=== PATIENT | female | born 1950 | race Caucasian/White ===

== ENCOUNTER → 2018-05-03 | Outpatient (CLI) | payer MEDICARE ==
[~2018-05-03] MED LIST: ACETAMINOPHEN500 MG PO; Aspirin EC325 MG PO; BENA10 PO; BENA20; BENA20 PO; Benazepril HCl10 MG PO; CALCIT950; CALGLU500 PO; FOLI1; GLIP10 PO; GLIP10ER; GLIP5 PO; HYDCHL25; HYDCHL25 PO; IBUP600; METF500; METF500 PO; MULVITMINE PO; NAPR220; ROSI4 PO; ROXICODONE5 MG PO; SULF500A PO
[2018-05-03 15:54] LABS: BASOPHILS ABSOLUTE AUTO 0.08 K/mm3 (0.00-0.23); BASOPHILS PERCENT AUTO 1 % (0-2); EOSINOPHILS ABSOLUTE AUTO 0.08 K/mm3 (0.00-0.68); EOSINOPHILS PERCENT AUTO 1 % (0-6); Hemoglobin 12.1 g/dL (11.5-16.0); IMMATURE GRAN ABSOLUTE AUTO 0.17 K/mm3 (0.00-0.10); IMMATURE GRAN PERCENT AUTO 1 % (0-1); LYMPHOCYTES ABSOLUTE AUTO 0.92 K/mm3 (0.84-5.20); LYMPHOCYTES PERCENT AUTO 6 % (21-46); MONOCYTES ABSOLUTE AUTO 1.44 K/mm3 (0.16-1.47); MONOCYTES PERCENT AUTO 9 % (4-13); Mean Corpuscular HGB 30.8 pg (26.0-34.0); Mean Corpuscular HGB Conc 33.6 g/dL (31.5-36.5); Mean Corpuscular Volume 92 fL (80-100); Mean Platelet Volume 9.7 fL (9.1-12.4); NEUTROPHILS ABSOLUTE AUTO 12.99 K/mm3 (1.96-9.15); NEUTROPHILS PERCENT AUTO 83 % (41-73); Platelet Count 308 K/mm3 (150-400); RDW Coefficient Variation 13.5 % (11.7-14.2); RDW Standard Deviation 45.7 fL (35.1-46.3); Red Blood Cell Count 3.93 M/mm3 (3.80-5.20); White Blood Cell Count 15.68 K/mm3 (4.00-11.30)
[2018-05-03 16:08] LABS: Anion Gap 14 mmol/L (6-16); Blood Urea Nitrogen 35 mg/dL (8-24); Bun/Creatinine Ratio 14.8 (12.0-20.0); CO2, Blood 25 mmol/L (21-32); Calcium, Blood 9.9 mg/dL (8.5-10.1); Chloride, Blood 93 mmol/L (98-108); Creatinine, Blood 2.36 mg/dL (0.40-1.00); Glomerular Filtration Rate 21 (60-); Glucose, Blood 303 mg/dL (70-99); Potassium, Blood 3.9 mmol/L (3.5-5.5); Sodium, Blood 132 mmol/L (136-145)
[2018-05-03 16:13] LABS: Troponin I <0.017 ng/mL (0.000-0.040)
== END | disposition home or self-care (01) ==
LOC: LAB SHORT 15:50 → LAB EV 15:50
PROVIDERS: Physician Assistant Surgical
DX: R53.83 Other fatigue (principal)
CPT/HCPCS: 80048; 84484; 85025

== ENCOUNTER 2019-03-29 09:01 | Day surgery (SDC) | payer MEDICARE ==
[~2019-03-29] VITALS: Ht 167.6 cm; Wt 65.3 kg
[~2019-03-29 09:01] MED LIST changes: +Benazepril HCl20 MG PO; +FLAX PO; +FOLI1 PO; +Ferrous Sulfat325 M2 PO; +Omega-31000 MG PO; +VITAMIN D31000 UNIT PO
[2019-03-29] MEDS ORDERED: HYDCHL25 (09:16)
--- NOTE | 2019-03-29 10:11 | NUR ---
03/29/19 1011 Angelina Sanchez WHEN ASKED PT. IF SHE HAD ANY PAIN, PT. STATED "GUT UNCOMFORTABLE." PT. VERBALIZES FROM DOING THE PREP.
--- NOTE | 2019-03-29 11:36 | NUR ---
03/29/19 1135 Angelina Sanchez WHEN ASKED PT. IF SHE HAD ANY PAIN, PT. STATED "NOTHING SPECIFIC."
== END 2019-03-29 11:33 | disposition home or self-care (01) ==
LOC: ORSCSDS 09:01
PROVIDERS: Internal Medicine Gastroenterology
PROC: 0DBE8ZX Excision of Large Intestine, Via Natural or Artificial Opening Endoscopic, Diagnostic (ICD-10-PCS; principal; 2019-03-29 10:30)
PROC: 0DBH8ZX Excision of Cecum, Via Natural or Artificial Opening Endoscopic, Diagnostic (ICD-10-PCS; principal; 2019-03-29 10:30)
DX: K51.30 Ulcerative (chronic) rectosigmoiditis without complications (principal); D12.0 Benign neoplasm of cecum; I10 Essential (primary) hypertension; E11.9 Type 2 diabetes mellitus without complications; Z79.899 Other long term (current) drug therapy; Z79.84 Long term (current) use of oral hypoglycemic drugs
CPT/HCPCS: 82947; 88305; J2704; J7120

== ENCOUNTER 2020-09-27 07:36 | Day surgery (SDC) | payer MEDICARE ==
[~2020-09-27] VITALS: Ht 167.6 cm; Wt 62.3 kg
[~2020-09-27 07:36] MED LIST changes: +ATOR40TA PO; +FERROUS SULFAT325 M3 PO
== END 2020-09-27 09:56 | disposition home or self-care (01) ==
LOC: ORSCSDS 07:36
PROVIDERS: Internal Medicine Gastroenterology
PROC: 0DBF8ZX Excision of Right Large Intestine, Via Natural or Artificial Opening Endoscopic, Diagnostic (ICD-10-PCS; principal; 2020-09-27 09:00)
PROC: 0DBP8ZX Excision of Rectum, Via Natural or Artificial Opening Endoscopic, Diagnostic (ICD-10-PCS; principal; 2020-09-27 09:00)
PROC: 0DBL8ZX Excision of Transverse Colon, Via Natural or Artificial Opening Endoscopic, Diagnostic (ICD-10-PCS; principal; 2020-09-27 09:00)
PROC: 0DBG8ZX Excision of Left Large Intestine, Via Natural or Artificial Opening Endoscopic, Diagnostic (ICD-10-PCS; principal; 2020-09-27 09:00)
DX: Z12.11 Encounter for screening for malignant neoplasm of colon (principal); Z86.010 Personal history of colon polyps; K63.5 Polyp of colon; K52.9 Noninfective gastroenteritis and colitis, unspecified; K62.89 Other specified diseases of anus and rectum; E11.9 Type 2 diabetes mellitus without complications; I10 Essential (primary) hypertension; Z79.84 Long term (current) use of oral hypoglycemic drugs; Z79.899 Other long term (current) drug therapy
CPT/HCPCS: 82947; 88305; J0330; J0461; J2405; J2704; J7120

== ENCOUNTER 2021-12-19 10:22 | Inpatient (IN) | payer OTHER ==
[~2021-12-19] VITALS: Ht 170.2 cm; Wt 49.9 kg
[2021-12-19 11:27] LABS: BASOPHILS ABSOLUTE AUTO 0.06 K/mm3 (0.00-0.23); BASOPHILS PERCENT AUTO 1 % (0-2); EOSINOPHILS ABSOLUTE AUTO 0.11 K/mm3 (0.00-0.68); EOSINOPHILS PERCENT AUTO 1 % (0-6); Hematocrit 26.2 % (33.0-51.0); Hemoglobin 8.8 g/dL (11.5-16.0); IMMATURE GRAN ABSOLUTE AUTO 0.07 K/mm3 (0.00-0.10); IMMATURE GRAN PERCENT AUTO 1 % (0-1); LYMPHOCYTES ABSOLUTE AUTO 0.63 K/mm3 (0.84-5.20); LYMPHOCYTES PERCENT AUTO 6 % (21-46); MONOCYTES PERCENT AUTO 11 % (4-13); Mean Corpuscular HGB 30.1 pg (26.0-34.0); Mean Corpuscular HGB Conc 33.6 g/dL (31.5-36.5); Mean Corpuscular Volume 90 fL (80-100); Mean Platelet Volume 10.9 fL (9.1-12.4); NEUTROPHILS ABSOLUTE AUTO 8.16 K/mm3 (1.96-9.15); NEUTROPHILS PERCENT AUTO 81 % (41-73); Platelet Count 353 K/mm3 (150-400); RDW Coefficient Variation 14.8 % (11.7-14.2); RDW Standard Deviation 48.2 fL (35.1-46.3); Red Blood Cell Count 2.92 M/mm3 (3.80-5.20); White Blood Cell Count 10.13 K/mm3 (4.00-11.30)
[2021-12-19 12:02] LABS: Albumin, Blood 3.2 g/dL (3.4-5.0); Albumin/Globulin Ratio 0.7 (0.8-1.8); Bilirubin, Total 0.4 mg/dL (0.1-1.0); Bun/Creatinine Ratio 13.6 (12.0-20.0); Calcium, Blood 9.9 mg/dL (8.5-10.1); Creatinine, Blood 12.7 mg/dL (0.40-1.00); Globulin, Blood 4.6 g/dL (2.2-4.0); Potassium, Blood 4.4 mmol/L (3.5-5.5); Total Protein, Blood 7.8 g/dL (6.4-8.2)
[2021-12-19 15:01] LABS: Base Excess Venous -12.7 mmol/L; Bicarbonate Venous 14.7 mmol/L (24.0-30.0); PCO2 Venous 35.9 mmHg (38-42); PO2 Venous 32.3 mmHg (38-42); pH Blood Venous 7.23 (7.34-7.37)
--- NOTE | 2021-12-19 18:18 | NUR ---
PATIENT ADMITTED FOR CARMELINA. Patient alert/oriented x4, weak & SBA for transfers. Tele, NSR 67HR. Nephrology assessed patient at bedside, ordered IV Bicarb infusion. CBGs ac ordered, low SSI ordered. No SSI needed tonight. ADA regular diet. Vitals stable.
--- NOTE | 2021-12-19 22:33 | NUR ---
2000 PT LYING IN BED, DENIES ANY DISCOMFORT AT THIS TIME. TELE NSR, SCD'S ON. LAST BS WAS 122. PT DENIES NEED FOR ANYTHING AT THIS TIME. NO APPARENT SIGNS OF DISTRESS. CALL LIGHT IS IN REACH.
--- NOTE | 2021-12-19 23:54 | NUR ---
2300 POST VOID BLADDER SCAN, 385, PT DOES NOT WANT TO TRY TO PEE SOME MORE, SHE ALSO DOES NOT WANT A STRAIGHT CATH. PLAN IS TO WAIT UNTIL SHE PEES AGAIN, SHE WILL CONCENTRATE ON EMPTYING HER BLADDER MORE, AND THEN DOING A REPEAT BLADDER SCAN. NO APPARENT SIGNS OF DISTRESS. PT DENIES NEED FOR ANYTHING ELSE AT THIS TIME. CALL LIGHT IS IN REACH.
--- NOTE | 2021-12-19 23:56 | NUR ---
PT LYING IN BED, EYES CLOSED, APPEARS TO BE RESTING. WAKES EASILY TO VERBAL STIMULI. NO APPARENT SIGNS OF DISTRESS. CALL LIGHT IS IN REACH.
[2021-12-20] MEDS ORDERED: ATORVASTATIN CA40 M1 PO (00:07)
[2021-12-20] MEDS ORDERED: GLIP10 PO (00:07)
[2021-12-20] MEDS ORDERED: HYDCHL25 PO (00:08)
[2021-12-20] MEDS ORDERED: DORZOLAMIDE-TIM10 ML BOTHEYES (00:09)
--- NOTE | 2021-12-20 02:10 | NUR ---
PT LYING IN BED, EYES CLOSED, APPEARS TO BE RESTING. BREATHING IS EVEN, UNLABORED. NO APPARENT SIGNS OF DISTRESS. CALL LIGHT IS IN REACH.
--- NOTE | 2021-12-20 03:31 | NUR ---
PT LYING IN BED, EYES CLOSED, APPEARS TO BE RESTING, BREATHING IS EVEN, UNLABORED, NO APPARENT SIGNS OF DISTRESS. CALL LIGHT IS IN REACH.
--- NOTE | 2021-12-20 03:56 | NUR ---
PT IS AAO X 4, ON RA. TELE NSR. SCD'S. DENIED ANY DISCOMFORT FOR THIS SHIFT. PV BLADDER SCAN 385. PT DECLINED STRAIT CATH, PLAN TO CHECK AGAIN AFTER NEXT VOID. LAST BS WAS 122.
--- NOTE | 2021-12-20 05:00 | NUR ---
PV BLADDER SCAN DONE 448, WITH A RESULT OF [phone]. CALLED DR HAMPTON, NO NEW ORDERS AT THIS TIME, HE PLANS TO REVIEW HER LABS AFTER THEY ARE DRAWN THIS AM. WILL LET PT KNOW. PT TOLERATED PROCEDURE WELL. A LITTLE ANXIOUS ABOUT THE POSSIBILITY OF A STRAIGHT CATH. NO OTHER APPARENT SIGNS OF DISTRESS. CALL LIGHT IS IN REACH.
--- NOTE | 2021-12-20 05:46 | NUR ---
PT LYING IN BED, EYES CLOSED, APPEARS TO BE RESTING. BREATHING IS EVEN, UNLABORED. NO APPARENT SIGNS OF DISTRESS. CALL LIGHT IS IN REACH. NO OTHER CHANGES THIS SHIFT.
[2021-12-20 05:59] LABS: Hematocrit 21.2 % (33.0-51.0); Hemoglobin 7.2 g/dL (11.5-16.0); Mean Corpuscular HGB 30.5 pg (26.0-34.0); Mean Corpuscular Volume 90 fL (80-100); Mean Platelet Volume 11.2 fL (9.1-12.4); Platelet Count 309 K/mm3 (150-400); RDW Coefficient Variation 14.9 % (11.7-14.2); RDW Standard Deviation 48.2 fL (35.1-46.3); Red Blood Cell Count 2.36 M/mm3 (3.80-5.20); White Blood Cell Count 7.08 K/mm3 (4.00-11.30)
[2021-12-20 06:22] LABS: Magnesium, Blood 1.7 mg/dL (1.6-2.4)
[2021-12-20 06:48] LABS: Alanine Aminotransfer (ALT/SGP 9 U/L (12-78); Albumin, Blood 2.6 g/dL (3.4-5.0); Albumin/Globulin Ratio 0.7 (0.8-1.8); Alk Phos 56 U/L (50-136); Anion Gap 11 mmol/L (6-16); Aspartate Aminotrans (AST/SGOT 12 U/L (12-37); Bilirubin, Total 0.4 mg/dL (0.1-1.0); Blood Urea Nitrogen 156 mg/dL (8-24); Bun/Creatinine Ratio 15.8 (12.0-20.0); CO2, Blood 22 mmol/L (21-32); Calcium, Blood 8.5 mg/dL (8.5-10.1); Chloride, Blood 106 mmol/L (98-108); Creatinine, Blood 9.89 mg/dL (0.40-1.00); Globulin, Blood 3.7 g/dL (2.2-4.0); Glomerular Filtration Rate 4 (60-); Glucose, Blood 118 mg/dL (70-99); Phosphorus, Blood 5.2 mg/dL (2.5-4.9); Potassium, Blood 3.8 mmol/L (3.5-5.5); Sodium, Blood 139 mmol/L (136-145); Total Protein, Blood 6.3 g/dL (6.4-8.2)
[2021-12-20 13:21] LABS: Percent Saturation 26.4 % (15.0-50.0)
--- NOTE | 2021-12-20 16:43 | NUR ---
DAYSHIFT SUMMARY Patient denies pain/discomfort. IV Bicarb finished, now NS fluids running continous. Patient OOB to void, total urine output today was 900, PVR shows >400-600mL. PO intake 480mL, and IV fluids total of 1100mL. Reported bladder scans to manager medicaid, patient declined to have joyce catheter inserted. Vitals stable.
[2021-12-21 05:20] LABS: Hematocrit 18.8 % (33.0-51.0); Hemoglobin 6.4 g/dL (11.5-16.0)
[2021-12-21 05:44] LABS: Albumin, Blood 2.2 g/dL (3.4-5.0); Anion Gap 9 mmol/L (6-16); Blood Urea Nitrogen 124 mg/dL (8-24); CO2, Blood 25 mmol/L (21-32); Calcium, Blood 7.7 mg/dL (8.5-10.1); Chloride, Blood 108 mmol/L (98-108); Creatinine, Blood 7.77 mg/dL (0.40-1.00); Glomerular Filtration Rate 5 (60-); Glucose, Blood 113 mg/dL (70-99); Magnesium, Blood 1.5 mg/dL (1.6-2.4); Phosphorus, Blood 4.6 mg/dL (2.5-4.9); Potassium, Blood 3.7 mmol/L (3.5-5.5); Sodium, Blood 142 mmol/L (136-145)
--- NOTE | 2021-12-21 07:34 | NUR ---
PT HBG THIS AM 6.4. NOTIFIED; 1 UNIT PRBCS ORDERED. MAGNESIUM THIS AM 1.4; 1G IV REPLENISHMENT ADMINISTERED. NO ISSUES OVERNIGHT
--- NOTE | 2021-12-21 16:42 | NUR ---
DAYSHIFT SUMMARY Transfused 1 unit of blood this morning, no s/sx of reaction observed. Vitals stable during transfusion. Continuing to hydrate with normal saline. Good urine output this shift. CBGs WNL, SSI given. Soft BPs, but vitals stable.
[2021-12-22 05:39] LABS: Hematocrit 22.9 % (33.0-51.0); Hemoglobin 7.6 g/dL (11.5-16.0)
--- NOTE | 2021-12-22 06:05 | NUR ---
SHIFT SUMMARY PATIENT ALERT AND ORIENTED. HAD NO COMPLAINTS OF PAIN OR SHORTNESS OF BREATH. NO ACUTE ISSUES NOTED OVERNIGHT. CALL LIGHT WITHIN REACH. REPORT GIVEN TO ONCOMING RN.
[2021-12-22 06:07] LABS: Albumin, Blood 2.2 g/dL (3.4-5.0); Anion Gap 7 mmol/L (6-16); Blood Urea Nitrogen 106 mg/dL (8-24); Bun/Creatinine Ratio 16.8 (12.0-20.0); CO2, Blood 26 mmol/L (21-32); Calcium, Blood 7.7 mg/dL (8.5-10.1); Chloride, Blood 108 mmol/L (98-108); Glomerular Filtration Rate 7 (60-); Glucose, Blood 118 mg/dL (70-99); Magnesium, Blood 1.7 mg/dL (1.6-2.4); Phosphorus, Blood 4.4 mg/dL (2.5-4.9); Potassium, Blood 3.9 mmol/L (3.5-5.5); Sodium, Blood 141 mmol/L (136-145)
[2021-12-22 08:09] LABS: HBSAG SCREEN Negative (Negative); HCV AB <0.1 (0.0-0.9); HEP A AB, IGM Negative (Negative); HEP B CORE AB, IGM Negative (Negative)
--- NOTE | 2021-12-22 18:46 | NUR ---
SHIFT SUMMARY A&O X 4. VSS WITH SOFT YET STABLE BP's. HGB 7.9 TODAY AFTER RECEIVING 1 UNIT PRBC's YESTERDAY. PT HAD LARGE DARK BROWN TO BLACK COLORED BM, SPECIMEN SENT TO LAB. PT IS UP TO BATHROOM WITH WALKER 1 STDBY ASSIST. IS PLEASANT & COOPERATIVE WITH ALL CARE.
[2021-12-23 05:54] LABS: Hemoglobin 7.5 g/dL (11.5-16.0)
[2021-12-23 06:18] LABS: Albumin, Blood 2.2 g/dL (3.4-5.0); Anion Gap 8 mmol/L (6-16); Blood Urea Nitrogen 96 mg/dL (8-24); Bun/Creatinine Ratio 18.1 (12.0-20.0); CO2, Blood 23 mmol/L (21-32); Calcium, Blood 7.8 mg/dL (8.5-10.1); Chloride, Blood 109 mmol/L (98-108); Glomerular Filtration Rate 8 (60-); Glucose, Blood 109 mg/dL (70-99); Magnesium, Blood 1.5 mg/dL (1.6-2.4); Phosphorus, Blood 3.5 mg/dL (2.5-4.9); Potassium, Blood 3.7 mmol/L (3.5-5.5); Sodium, Blood 140 mmol/L (136-145)
[2021-12-23 12:41] LABS: Stool Occult Bld Immuno 1 Positive (NEGATIVE)
--- NOTE | 2021-12-23 18:02 | NUR ---
SHIFT SUMMAR A&O X 4. VSS. NO COMPLAINTS TODAY. STOOL SPECIMEN CAME BACK POSITIVE FOR OCCULT BLOOD. HGB & HCT 7.5 & 23.0 TODAY. APPETITE IS GOOD. DENIES PAIN, DYSPNEA, FATIGUE OR WEAKNESS. IS ABLE TO INDEPENDENTLY GET UP USING A WALKER TO USE THE RESTROOM WITH 1 PERSON TO HELP WITH IV POLE. APPROPRIATELY CALLS FOR HELP. IS PLEASANT & COOPERATIVE.
[2021-12-24 05:36] LABS: Hematocrit 23.4 % (33.0-51.0); Hemoglobin 7.7 g/dL (11.5-16.0)
[2021-12-24 06:06] LABS: Albumin, Blood 2.2 g/dL (3.4-5.0); Anion Gap 8 mmol/L (6-16); Blood Urea Nitrogen 80 mg/dL (8-24); Bun/Creatinine Ratio 17.3 (12.0-20.0); CO2, Blood 22 mmol/L (21-32); Calcium, Blood 7.9 mg/dL (8.5-10.1); Chloride, Blood 110 mmol/L (98-108); Creatinine, Blood 4.62 mg/dL (0.40-1.00); Glomerular Filtration Rate 10 (60-); Glucose, Blood 98 mg/dL (70-99); Magnesium, Blood 1.7 mg/dL (1.6-2.4); Phosphorus, Blood 3.4 mg/dL (2.5-4.9); Potassium, Blood 4.1 mmol/L (3.5-5.5); Sodium, Blood 140 mmol/L (136-145)
--- NOTE | 2021-12-24 17:19 | NUR ---
SHIFT SUMMARY PT AMBULATING WELL TODAY, WEAKNESS IMPROVING GREATLY. PT TOLERATING DIET WELL. FLUIDS INFUSING PER ORDERS. PT VOIDING WELL. PT HOPEFULL TO DISCHARGE TOMORROW.
[2021-12-25 05:58] LABS: Bun/Creatinine Ratio 17.5 (12.0-20.0); Calcium, Blood 7.8 mg/dL (8.5-10.1); Creatinine, Blood 4.51 mg/dL (0.40-1.00); Potassium, Blood 4.3 mmol/L (3.5-5.5)
--- NOTE | 2021-12-25 06:51 | NUR ---
PT CONTINUES WITH MINIMAL ORAL INTAKE DECLINES SUPPLEMENTS . WEAK FRAIL GFR AT 10 THIS AM .CONTINUES WITH NS AT 50 ML HR.
[2021-12-25] MEDS ORDERED: DOCU100 PO (11:17)
--- NOTE | 2021-12-25 13:43 | NUR ---
DISCHARGE SUMMARY PATIENT ALERT AND ORIENTED THROUGHOUT SHIFT. SBA WITH FWW TO BATHROOM. TOLERATING SMALL AMOUNT OF ADA AND LOW SALT DIET AND LIDUIDS. KIDNEY FUNCTION LABS SLOWLY TRENDING UP, ALTHOUGH STILL VERY LOW. DR MCCORMICK GAVE DISCHARGE ORDERS AND TO FOLLOW UP OUTPATIENT WITH PCP AND NEPHROLOGY. DISCHARGE EDUCATION GIVEN ON CARMELINA AND ANEMIA, NEW MEDS, DIET, ACTIVITY, AND FOLLOW UP APPTS. IV DC'D WNL. PATIENT LEFT UNIT AT 1315 VIA WHEELCHAIR WITH SON FOR HOME.
== END 2021-12-25 13:13 | disposition home or self-care (01) | DRG 682 ==
LOC: ER 10:22 → MEDS 13:59
PROVIDERS: Internal Medicine; Internal Medicine Nephrology; Nurse Practitioner Acute Care; Physician Assistant; ADMIT Hospitalist
PROC: 30233N1 Transfusion of Nonautologous Red Blood Cells into Peripheral Vein, Percutaneous Approach (ICD-10-PCS; principal; 2021-12-21)
DX: N17.0 Acute kidney failure with tubular necrosis (principal); E43 Unspecified severe protein-calorie malnutrition; E87.2 Acidosis; Z68.1 Body mass index [BMI] 19.9 or less, adult; E87.1 Hypo-osmolality and hyponatremia; I12.0 Hypertensive chronic kidney disease with stage 5 chronic kidney disease or end stage renal disease; R64 Cachexia; N18.5 Chronic kidney disease, stage 5; R63.4 Abnormal weight loss; E11.22 Type 2 diabetes mellitus with diabetic chronic kidney disease; D63.1 Anemia in chronic kidney disease; H40.9 Unspecified glaucoma; R19.5 Other fecal abnormalities; E78.00 Pure hypercholesterolemia, unspecified; E86.9 Volume depletion, unspecified; E88.09 Other disorders of plasma-protein metabolism, not elsewhere classified; E11.649 Type 2 diabetes mellitus with hypoglycemia without coma; D50.9 Iron deficiency anemia, unspecified; E83.42 Hypomagnesemia; Z96.649 Presence of unspecified artificial hip joint; Z98.890 Other specified postprocedural states; Z86.010 Personal history of colon polyps; Z79.84 Long term (current) use of oral hypoglycemic drugs; Z79.899 Other long term (current) drug therapy; Z79.02 Long term (current) use of antithrombotics/antiplatelets; Z98.51 Tubal ligation status; Z98.42 Cataract extraction status, left eye; Z98.41 Cataract extraction status, right eye
CPT/HCPCS: 36415; 36430; 71045; 76700; 80048; 80053; 80069; 80074; 82274; 82550; 82607; 82728; 82746; 82803; 82947; 83540; 83550; 83735; 84100; 84443; 85014; 85018; 85025; 85027; 86850; 86900; 86901; 86923; 87340; 97110; 97116; 97161; 97530; 99285-25; A9270; J0881; J1644; J3475; J7030; P9016

== ENCOUNTER 2022-03-04 16:07 | Inpatient (IN) | payer OTHER ==
[~2022-03-04] VITALS: Ht 170.2 cm; Wt 57.7 kg
[~2022-03-04 16:07] MED LIST changes: +ATORVASTATIN CA40 M1 PO; +DOCU100 PO; +DORZOLAMIDE-TIM10 ML BOTHEYES
[2022-03-04 16:23] LABS: BASOPHILS ABSOLUTE AUTO 0.06 K/mm3 (0.00-0.23); BASOPHILS PERCENT AUTO 1 % (0-2); EOSINOPHILS ABSOLUTE AUTO 0.45 K/mm3 (0.00-0.68); EOSINOPHILS PERCENT AUTO 5 % (0-6); Hematocrit 31.9 % (33.0-51.0); Hemoglobin 10.4 g/dL (11.5-16.0); IMMATURE GRAN ABSOLUTE AUTO 0.02 K/mm3 (0.00-0.10); IMMATURE GRAN PERCENT AUTO 0 % (0-1); LYMPHOCYTES ABSOLUTE AUTO 1.24 K/mm3 (0.84-5.20); LYMPHOCYTES PERCENT AUTO 13 % (21-46); MONOCYTES ABSOLUTE AUTO 1.33 K/mm3 (0.16-1.47); MONOCYTES PERCENT AUTO 14 % (4-13); Mean Corpuscular HGB 29.5 pg (26.0-34.0); Mean Corpuscular HGB Conc 32.6 g/dL (31.5-36.5); Mean Corpuscular Volume 91 fL (80-100); Mean Platelet Volume 10.3 fL (9.1-12.4); NEUTROPHILS PERCENT AUTO 67 % (41-73); Platelet Count 234 K/mm3 (150-400); RDW Coefficient Variation 13.7 % (11.7-14.2); RDW Standard Deviation 45.4 fL (35.1-46.3); Red Blood Cell Count 3.52 M/mm3 (3.80-5.20)
[2022-03-04 16:53] LABS: Source, Urine Clean Catch
[2022-03-04 16:55] LABS: Appearance, Urine Hazy (Clear); Bilirubin, Urine Neg (Neg); Blood, Urine 3+ (Neg); Color, Urine Yellow (P-Yellow); Glucose Qualitative, Urine 1+ (Neg); Ketones, Urine Neg (Neg); Leukocyte Esterase, Urine 1+ (Neg); Nitrite, Urine Neg (Neg); Protein, Urine 2+ (Neg); Urobilinogen, Urine NORM (Normal)
[2022-03-04 17:03] LABS: Bacteria Mod /hpf; Squamous Epithelial Cells Few /hpf (Few)
[2022-03-04 17:10] LABS: Albumin, Blood 3.5 g/dL (3.4-5.0); Albumin/Globulin Ratio 0.9 (0.8-1.8); Bilirubin, Total 0.2 mg/dL (0.1-1.0); Bun/Creatinine Ratio 8.7 (12.0-20.0); Calcium, Blood 16.5 mg/dL (8.5-10.1); Creatinine, Blood 6.01 mg/dL (0.40-1.00); Globulin, Blood 3.7 g/dL (2.2-4.0); Potassium, Blood 3.7 mmol/L (3.5-5.5); Total Protein, Blood 7.2 g/dL (6.4-8.2)
[2022-03-04 17:55] LABS: Magnesium, Blood 2.1 mg/dL (1.6-2.4)
[2022-03-04 20:44] LABS: Base Excess Venous 8.5 mmol/L; Bicarbonate Venous 31.5 mmol/L (24.0-30.0); PCO2 Venous 42.9 mmHg (38-42); pH Blood Venous 7.48 (7.34-7.37)
[2022-03-05 02:26] LABS: Hematocrit 30.5 % (33.0-51.0); Hemoglobin 10.7 g/dL (11.5-16.0); Mean Corpuscular HGB 32.4 pg (26.0-34.0); Mean Corpuscular HGB Conc 35.1 g/dL (31.5-36.5); Mean Corpuscular Volume 92 fL (80-100); Mean Platelet Volume 10.5 fL (9.1-12.4); Platelet Count 214 K/mm3 (150-400); RDW Coefficient Variation 13.7 % (11.7-14.2); RDW Standard Deviation 44.8 fL (35.1-46.3)
[2022-03-05 02:43] LABS: Magnesium, Blood 1.9 mg/dL (1.6-2.4); Thyroid Stimulating Hormone 0.796 uIU/mL (0.360-4.800)
[2022-03-05 02:47] LABS: Cortisol, AM 26.9 ug/dL (6.7-22.6)
[2022-03-05 02:56] LABS: Albumin, Blood 3.3 g/dL (3.4-5.0); Anion Gap 7 mmol/L (6-16); Blood Urea Nitrogen 24 mg/dL (8-24); Bun/Creatinine Ratio 7.3 (12.0-20.0); CO2, Blood 32 mmol/L (21-32); Chloride, Blood 99 mmol/L (98-108); Creatinine, Blood 3.27 mg/dL (0.40-1.00); Glomerular Filtration Rate 15 (60-); Glucose, Blood 108 mg/dL (70-99); Phosphorus, Blood 1.9 mg/dL (2.5-4.9); Potassium, Blood 3.3 mmol/L (3.5-5.5); Sodium, Blood 138 mmol/L (136-145)
[2022-03-05 03:19] LABS: Calcium, Blood 11.7 mg/dL (8.5-10.1)
--- NOTE | 2022-03-05 06:54 | NUR ---
INFORMATION RECEPTIONIST SUMMARY NEW ADMIT FROM ED FOR HYPERCALCEMIA; PT ARRIVED TO ROOM AT 21:55; ORIENTED TO ROOM AND CALL LIGHT. PT WAS WEARING STREET CLOTHES; CHANGED INTO GOWN AND PUT BELONGINGS IN BAG. PT IS A/OX3-4; PT MOVEMENTS ARE RIGID AND SHAKY; DIFFICULTY FOLLOWING DIRECTIONS AND CONFUSION WITH BODY MOVEMENT. 1-2 PERSON ASSIST TO BSC; PT HAD SOILED BRIEFS AND INCONTINENT WHEN MOVING TO BSC. ORDER FOR 24 HOUR URINE SAMPLE; OBTAINED ORDER FOR INDWELLING LUBIN FOR URINE SAMPLE; PT TOLERATED INSERTION WELL. PT RECVD 2 HOURS OF HEMODIALYSIS AT BEDSIDE. NORMAL SALINE RUNNING AT 50MLS/HR. ON TELE; NORMAL SINUS. ORIENTED PT TO ROOM AND CALL LIGHT; PT MAY BE UNABLE TO CALL APPROPRIATELY. BED ALARM SET; BED LOCKED IN LOW POSITION.
--- NOTE | 2022-03-05 11:54 | NUR ---
DIALYSIS PT PULLED HER IV OUT. BLOOD ON GOWN AND BED. CLEANED AND DRESSED NOTIFIED MILES DASILVA RN.
--- NOTE | 2022-03-05 16:50 | NUR ---
SHIFT SUMMARY PT IS A&OX4 AND PLEASANT. PT WENT DOWN FOR DIALYSIS THIS MORNING. DURING TREATMENT, PT PULLED OUT IV, PER DIALYSIS NURSE. NEW IV PLACED ONCE PT GOT BACK TO ROOM. PHYSICAL THERAPY WORKED WITH PT THIS AFTERNOON, PT TOLERATED WELL. PT WAS UP TO CHAIR FOR SHORT TIME BEFORE REQUESTING TO GO BACK TO BED. PT RECIEVED ARANESP AT 1620 PER EMAR. PT USES CALL LIGHT APPROPRIATELY. SON AT BEDSIDE DURING LUNCH. BED IN LOWEST POSITION AND CALL LIGHT IN REACH.
[2022-03-06 02:40] LABS: Protein, Urine Quantitative 37.1 mg/dL (0.0-11.9)
--- NOTE | 2022-03-06 03:58 | NUR ---
SHIFT SUMMARY NO ACUTE CHANGES OVERNIGHT. 24 URINE SENT TO LAB THIS MORNING. PT DENIES PAIN T/O SHIFT. ATTEMPT TO GET OUT OF BED WITHOUT CALLING ONCE AT NIGHT. BED ALARM ON. PT DIDN'T SLEEP MUCH AT NIGHT, BUT APPEARS COMFORTABLE IN BED WATCHING TV T/O SHIFT. VSS. CBG WNL. LUBIN IN PLACE WITH LIGHT YELLOW URINE. CALL LIGHT WITHIN REACH. WILL PROVIDE REPORT TO ONCOMING NURSE.
[2022-03-06 07:08] LABS: Albumin, Blood 3.2 g/dL (3.4-5.0); Anion Gap 4 mmol/L (6-16); Blood Urea Nitrogen 22 mg/dL (8-24); Bun/Creatinine Ratio 5.9 (12.0-20.0); CO2, Blood 33 mmol/L (21-32); Calcium, Blood 11.1 mg/dL (8.5-10.1); Chloride, Blood 104 mmol/L (98-108); Creatinine, Blood 3.71 mg/dL (0.40-1.00); Glomerular Filtration Rate 12 (60-); Glucose, Blood 105 mg/dL (70-99); Magnesium, Blood 1.9 mg/dL (1.6-2.4); Phosphorus, Blood 2.5 mg/dL (2.5-4.9); Potassium, Blood 3.4 mmol/L (3.5-5.5); Sodium, Blood 141 mmol/L (136-145)
[2022-03-06] MEDS ORDERED: ACET325 PO (12:46)
[2022-03-06] MEDS ORDERED: HYDPAM25 PO (12:47)
--- NOTE | 2022-03-06 16:37 | NUR ---
PT DISCHARGED HOME WITH SON. DISCHARGE INSTRUCTIONS AND EDUCATION GIVEN. PT DENIED ANY QUESTIONS OR CONCERNS AT THE TIME. BELONGINGS SENT HOME WITH PT. PT PULLED OUT IV BEFORE THIS NURSE WAS ABLE. CATHETER TIP IN PLACE AND GUAZE AND COBAN PLACED. PT WAS WHEELED DOWN TO WAITING VEHICLE.
[2022-03-07 14:12] LABS: IMMUNOGLOBULIN A, QN, SERUM 326 mg/dL (64-422); IMMUNOGLOBULIN G, QN, SERUM 1101 mg/dL (586-1602); IMMUNOGLOBULIN M, QN, SERUM 53 mg/dL (26-217)
[2022-03-12 14:09] LABS: M-SPIKE, % Not Observed % (Not Observed); PROTEIN,TOTAL,URINE 7.7 mg/dL (Not Estab.)
== END 2022-03-06 15:31 | disposition home health service (06) | DRG 640 ==
LOC: ER 16:07 → MEDS 16:08
PROVIDERS: Emergency Medicine; Family Medicine; Internal Medicine Nephrology; Student in an Organized Health Care Education/Training Program; ADMIT Student in an Organized Health Care Education/Training Program
PROC: 5A1D70Z Performance of Urinary Filtration, Intermittent, Less than 6 Hours Per Day (ICD-10-PCS; principal; 2022-03-05)
DX: E83.52 Hypercalcemia (principal); N18.6 End stage renal disease; E87.1 Hypo-osmolality and hyponatremia; I12.0 Hypertensive chronic kidney disease with stage 5 chronic kidney disease or end stage renal disease; R82.71 Bacteriuria; Z96.649 Presence of unspecified artificial hip joint; L29.9 Pruritus, unspecified; E11.22 Type 2 diabetes mellitus with diabetic chronic kidney disease; E87.6 Hypokalemia; E83.39 Other disorders of phosphorus metabolism; D63.1 Anemia in chronic kidney disease; E21.3 Hyperparathyroidism, unspecified; Z99.2 Dependence on renal dialysis; Z98.51 Tubal ligation status; Z98.890 Other specified postprocedural states; Z98.41 Cataract extraction status, right eye; Z98.42 Cataract extraction status, left eye
CPT/HCPCS: 36415; 80053; 80069; 81001; 81050; 82164; 82330; 82397; 82530; 82533; 82803; 82947; 83735; 83970; 84100; 84156; 84166; 84443; 85018; 85025; 85027; 86334; 86335; 87086; 93005; 93010; 96360; 96361; 96372; 97116; 97162; 97166; 97530; 99285-25; A9270; G0378; J0630; J0881; J1200; J1650; J7030; J7060

== ENCOUNTER → 2023-02-25 | Outpatient (CLI) | payer OTHER ==
[~2023-02-25] MED LIST changes: +ACET325 PO; +FERSU300 PO; +HYDPAM25 PO; +Vitamin D1000 UNI1 PO
[2023-02-25 18:58] LABS: Albumin, Blood 3.2 g/dL (3.4-5.0); Bilirubin, Total 0.3 mg/dL (0.1-1.0); Calcium, Blood 10.8 mg/dL (8.5-10.1); Creatinine, Blood 5.28 mg/dL (0.40-1.00); Globulin, Blood 3.3 g/dL (2.2-4.0); Phosphorus, Blood 4.8 mg/dL (2.5-4.9); Potassium, Blood 3.7 mmol/L (3.5-5.5); Total Protein, Blood 6.5 g/dL (6.4-8.2)
== END ==
LOC: LAB SHORT 12:11 → LAB 12:11
PROVIDERS: Internal Medicine Hematology & Oncology
DX: E83.52 Hypercalcemia (principal)
CPT/HCPCS: 80053; 84100

== ENCOUNTER → 2023-08-25 | Outpatient (CLI) | payer OTHER | LOC: LAB SHORT 08:08 → LAB 08:08 | DX: L91.8 Other hypertrophic disorders of the skin (principal); D49.89 Neoplasm of unspecified behavior of other specified sites; M79.671 Pain in right foot | CPT/HCPCS: 88305 ==